=== PATIENT | female | born 2000 | race American Indian/Alaskan Native ===

== ENCOUNTER 2019-07-10 11:39 | Emergency (ER) | payer SELFPAY ==
[2019-07-10 11:53] VITALS: BP 126/70
--- NOTE | 2019-07-10 12:06 | Emergency Department Report ---
Burn HPI - History Stated Complaint: BURN Chief Complaint: Burn/Smoke Inhalation Time Seen by Provider: 07/10/19 11:51 Duration of Burn: 5 Days Burn Location: Arms (right) Burn Etiology: Accidental Pain: Moderate Symptoms:: Yes Blistering, Yes Able to Tolerate Fluids, No Malaise, No Myalgias, No Fever, No Vomiting Other History: This is a 18-year-old female that presents to the ER with a burn to right lateral forearm x 5 days. Patient states she burned her right arm while at work Monday morning. Her security project manager was supposed to take her to [email or web address] and decided to take her later that day which caused her miss the appointment. She reports pain and blistering. States blisters have erupt and intermittent pain. She denies swelling, redness, warmth, numbness or tingling. - Home Meds and Allergies Home Medications: Previous Rx's Medication Instructions Recorded Last Taken Type Bacitracin 3.5 gm OP BID 7 Days #1 oint...g. 07/10/19 Unknown Rx Allergies/Adverse Reactions: Allergies Allergy/AdvReac Type Severity Reaction Status Date / Time No Known Allergies Allergy Unverified 07/10/19 11:42 ED Review of Systems ROS: Stated complaint: BURN Other details as noted in HPI Constitutional: denies: chills, fever Respiratory: denies: cough, shortness of breath, wheezing Cardiovascular: denies: chest pain, palpitations Gastrointestinal: denies: abdominal pain, nausea, diarrhea Skin: lesions (blistering to right lateral forearm). denies: rash ED Past Medical Hx - Past Medical History Previous Medical History?: No - Surgical History Past Surgical History?: No - Social History Smoking Status: Never Smoker Substance Use Type: None - Medications Home Medications: Home Medications Medication Instructions Recorded Confirmed Last Taken Type Bacitracin 3.5 gm OP BID 7 Days #1 oint...g. 07/10/19 Unknown Rx Exam - Exam General: Vital signs noted. No distress. Alert and acting appropriately. HEENT: Yes Moist Mucous Membranes, No Conjuctival Injection, No Corneal Edema Full Body Front + Back: 1 - 9% 3-4 cm area to epidermis of right lateral proximal forearm, dry blisters, tenderness, partial blanchable to edges, no drainage, FROM, 2+ radial pulse, brisk capillary refill Skin: Yes Blistering (3-4 cm area 9% to right lateral forearm, crusting lesions, tenderness), Yes Tenderness, No Erythroderma, No Edema Exam: Yes Normal Heart Sounds, No Respiratory Distress, No Sensory Deficits, No Musculoskeletal Pain ED Course Vital Signs 07/10/19 11:52 Temperature 98.4 F Pulse Rate 86 Respiratory 18 Rate Blood Pressure 126/70 O2 Sat by Pulse 98 Oximetry ED Medical Decision Making - Medical Decision Making This patient was seen by this provider. Vitals are stable. There is a 3-4 cm area 9% to right lateral forearm, crusting lesions, tenderness. The wound appear to be healing well. Patient clinical and physical exam features are most consistent with a partial thickness burn. There are no evidence of airway compromise, dehydration, infection, or weakness. Start bacitracin. Follow up with primary care doctor in 2-3 days. Critical care attestation.: If time is entered above; I have spent that time in minutes in the direct care of this critically ill patient, excluding procedure time. ED Disposition Clinical Impression: Partial thickness burn of forearm Qualifiers: Encounter type: initial encounter Laterality: right Qualified Code(s): T22.211A - Burn of second degree of right forearm, initial encounter Disposition: - TO HOME OR SELFCARE Is pt being admited?: No Condition: Stable Instructions: Partial Thickness Burn (ED), Acute Wound Care (ED) Additional Instructions: Avoid scrubbing your wound with bertadine or peroxide. Apply a thin layer of bacitracin ointment to wound twice a day. Follow up with a primary care doctor in 2-3 days. Prescriptions: Bacitracin 3.5 gm OP BID 7 Days #1 oint...g. Referrals: [facility] [Outside] - 3-5 Days [facility] [Outside] - 3-5 Days [facility] [Outside] - 3-5 Days Forms: Work/School Release Form(ED) Time of Disposition: 12:44
== END 2019-07-10 12:53 | disposition home or self-care (01) ==
LOC: ED 11:39
DX: T22.211A Burn of second degree of right forearm, initial encounter (principal); Z79.899 Other long term (current) drug therapy; X15.8XXA Contact with other hot household appliances, initial encounter; Y93.89 Activity, other specified; Y92.89 Other specified places as the place of occurrence of the external cause; Y99.8 Other external cause status